=== PATIENT | male | born 1955 | race Caucasian/White ===

== ENCOUNTER 2016-09-07 19:22 | Emergency (ER) | payer OTHER ==
[~2016-09-07] VITALS: Ht 193 cm; Wt 130.6 kg
[2016-09-07 20:30] LABS: Basophils # (auto) 0.1 uL; Basophils % (auto) 0.5 % (0.0-2.0); CONDITION Y; Eosinophils # (auto) 0.3 uL; Eosinophils % (auto) 2.9 % (0.0-7.0); Hemoglobin 15.9 g/dL (13.5-17.5); Lymphocytes # (auto) 2.9 uL; Lymphocytes % (auto) 29.9 % (10.0-50.0); Mean Corpuscular Hemoglobin 31.6 pg (28.0-32.0); Mean Corpuscular Hgb Conc. 34.6 g/dL (32.0-36.0); Mean Corpuscular Volume 91.4 fL (80.0-100.0); Mean Platelet Volume 7.8 fL (7.4-10.4); Monocytes # (auto) 0.9 uL; Monocytes % (auto) 8.8 % (0.0-12.0); Neutrophils # (auto) 5.7 uL; Neutrophils % (auto) 57.9 % (37.0-80.0); Platelet Count (auto) 318 10^3/uL (140-450); Red Cell Distribution Width 13.4 % (11.6-16.0); White Blood Cell 9.9 10^3/uL (4.4-10.8)
[2016-09-07 20:34] LABS: Albumin 3.9 g/dL (3.4-5.0); Alkaline Phosphatase 50 U/L (45-117); Anion Gap 9 (5-15); Aspartate Aminotransferase 30 U/L (15-37); BUN/Creatinine Ratio 29.7; Bilirubin, Total 0.8 mg/dL (0.2-1.0); Blood Urea Nitrogen 27 mg/dL (7-18); Calcium 9.5 mg/dL (8.5-10.1); Carbon Dioxide 26 mmol/L (21-32); Chloride 106 mmol/L (98-107); GFR African American 110 mL/min; GFR Non-African American 91 mL/min; Glucose 117 mg/dL (74-106); Magnesium 2.6 mg/dL (1.6-2.6); Potassium 3.5 mmol/L (3.5-5.1); Sodium 141 mmol/L (136-145); Total Protein 7.7 g/dL (6.4-8.2)
[2016-09-07] MEDS ORDERED: ALTEPLASE ONE (21:53)
[2016-09-07] MEDS ORDERED: ASPirin 81 mg TAB PO ONE (22:15)
[2016-09-07] MEDS ORDERED: ALTEPLASE (RECOMBINANT) 100 MG in STERILE WATER 100 ML IV ONE (22:15)
[2016-09-07 22:55] LABS: INR 1.02 (0.9-1.15); Prothrombin Time 11.1 sec (9.37-12.3)
[2016-09-07 23:40] VITALS: BP 151/106
== END 2016-09-08 00:21 | disposition short-term general hospital (02) ==
LOC: EDBD 19:22 → ER 19:29
DX: I63.9 Cerebral infarction, unspecified (principal); E78.5 Hyperlipidemia, unspecified; I10 Essential (primary) hypertension; I25.2 Old myocardial infarction; F17.210 Nicotine dependence, cigarettes, uncomplicated; F12.10 Cannabis abuse, uncomplicated
CPT/HCPCS: 36415; 70450; 71010; 80053; 83735; 84484; 85025; 85610; 93005